=== PATIENT | female | born 1990 | race Caucasian/White ===

== ENCOUNTER 2017-12-23 22:45 | Emergency (ER) | payer SELFPAY ==
[2017-12-24] MEDS ORDERED: ONDANSETRON HCL INJ/PF 4 MG/2 ML SDV IV ONE (02:58)
[2017-12-24] MEDS ORDERED: MORPHINE SULFATE 10 MG/ML INJ IV ONE (02:58)
[2017-12-24] MEDS ORDERED: NORMAL SALINE 1000 ML 1,000 ML IV ONE (02:59)
[2017-12-24 03:13] LABS: ABSOLUTE BASOPHILS # (AUTO) 0.1 10^3/uL (0.0-0.2); ABSOLUTE EOSINOPHILS # (AUTO) 0.4 10^3/uL (0.0-0.6); ABSOLUTE LYMPHOCYTES (AUTO) 3.3 10^3/uL (0.5-4.7); ABSOLUTE MONOCYTES (AUTO) 0.8 10^3/uL (0.1-1.4); BASOPHILS % (AUTO) 0.6 % (0-2); EOSINOPHILS % (AUTO) 3.1 % (0-6); HEMATOCRIT 40.2 % (36.0-47.0); HEMOGLOBIN 13.5 g/dL (12.0-15.5); LYMPHOCYTES % (AUTO) 28.6 % (13-45); MEAN CORPUSCULAR HEMOGLOBIN 28.8 pg (27.0-33.4); MEAN CORPUSCULAR HGB CONC 33.6 g/dL (32.0-36.0); MEAN CORPUSCULAR VOLUME 86 fl (80-97); MONOCYTES % (AUTO) 7.3 % (3-13); PLATELET COUNT 378 10^3/uL (150-450); RED CELL DISTRIBUTION WIDTH 13.6 % (11.5-14.0); SEGMENTED NEUTROPHILS % (AUTO) 60.4 % (42-78); TOTAL CELLS COUNTED % (AUTO) 100 %; WHITE BLOOD COUNT 11.6 10^3/uL (4.0-10.5)
--- NOTE | 2017-12-24 03:17 | ER Document Report ---
ED General - General Mode of Arrival: Ambulatory Information source: Patient TRAVEL OUTSIDE OF THE [place] IN LAST 30 DAYS: No <BILLY CRONIN - Last Filed: 12/24/17 06:28> <ETHAN SMITH - Last Filed: 12/24/17 07:26> - General Chief Complaint: Lower Abdominal Pain Stated Complaint: ABDOMINAL PAIN Time Seen by Provider: 12/24/17 02:49 - HPI Notes: Patient is a 27-year-old female history of previous right ectopic in 2011 with surgical removal and previous right kidney stone status post 8 mm kidney stone extraction and right ovarian cyst presents with report of sudden onset of right lower quadrant abdominal pain came on about 2000 this evening after eating dinner. The patient reports no constipation or diarrhea or dysuria or vaginal discharge or fever or back injury. The patient states the pain started abruptly sharp in the right lower quadrant region and then later went to the right flank region. The patient denies any numbness or paresthesia or radiation of the pain down the leg. (BILLY CRONIN) - Related Data Allergies/Adverse Reactions: sumatriptan [From Imitrex] Allergy (Verified 12/23/17 22:51) Past Medical History - General Information source: Patient - Social History Smoking Status: Current Some Day Smoker Frequency of alcohol use: Rare Drug Abuse: None Lives with: Family Family History: Reviewed & Not Pertinent Patient has suicidal ideation: No Patient has homicidal ideation: No Renal/ Medical History: Denies: Hx Peritoneal Dialysis <BILLY CRONIN - Last Filed: 12/24/17 06:28> Review of Systems - Review of Systems -: Yes All other systems reviewed and negative <BILLY CRONIN - Last Filed: 12/24/17 06:28> Physical Exam <BILLY CRONIN - Last Filed: 12/24/17 06:28> <ETHAN SMITH - Last Filed: 12/24/17 07:26> - Vital signs Vitals: Temp Pulse Resp BP Pulse Ox 98.0 F 83 16 109/64 99 12/23/17 23:23 12/23/17 23:23 12/23/17 23:23 12/23/17 23:23 12/23/17 23:23 - Notes Notes: PHYSICAL EXAMINATION: GENERAL: Well-appearing, well-nourished and in moderate discomfort. HEAD: Atraumatic, normocephalic. EYES: Pupils equal round and reactive to light, extraocular movements intact, conjunctiva are normal. ENT: Nares patent, oropharynx clear without exudates. Moist mucous membranes. NECK: Normal range of motion, supple without lymphadenopathy LUNGS: Breath sounds clear to auscultation bilaterally and equal. No wheezes rales or rhonchi. HEART: Regular rate and rhythm without murmurs ABDOMEN: Soft abdomen. No guarding, no rebound. No masses appreciated. Tender right lower quadrant with some radiation through to the right CVA region. No erythema. Female : deferred Musculoskeletal: Normal range of motion, no pitting or edema. No cyanosis. NEUROLOGICAL: Cranial nerves grossly intact. Normal speech, normal gait. Normal sensory, motor exams PSYCH: Normal mood, normal affect. SKIN: Warm, Dry, normal turgor, no rashes or lesions noted. (BILLY CRONIN) Course - Laboratory Result Diagrams: 12/24/17 03:05 12/24/17 03:05 - Transfer of Care Care transferred to following provider: Dr. Smith <BILLY CRONIN - Last Filed: 12/24/17 06:28> - Laboratory Result Diagrams: 12/24/17 03:05 12/24/17 03:05 <ETHAN SMITH - Last Filed: 12/24/17 07:26> - Re-evaluation Re-evalutation: 12/24/17 03:16 IV normal saline bolus, Zofran, morphine was given. Urine was strained. 12/24/17 03:55 Urinalysis showed trace ketones and evidence for a UTI. Urine culture was ordered prior to the patient receiving IV Rocephin. 12/24/17 06:28 Findings fit either with ovarian pathology versus kidney stone. Less likely pyelonephritis. Less likely appendicitis or ovarian torsion. Question previous scarring from prior ectopic from 2011. Patient is not currently. CT scan is pending. Care turned over to Dr. Smith at 0600. 12/24/17 06:29 (BILLY CRONIN) 12/24/17 07:23 Patient reexamined after reviewing CT scan, she still complaining of some right lower quadrant abdominal pain, she is noted to have a 3.5 cm cyst on her right ovary, consistent with a cause of her pain, will give her a dose of Toradol, and discharged home with naproxen and given [employer]NAGER to follow-up with. Patient agreeable to plan of care and discharged home. (ETHAN SMITH) - Vital Signs Vital signs: Temp Pulse Resp BP Pulse Ox 98.0 F 83 16 109/64 99 12/23/17 23:23 12/23/17 23:23 12/23/17 23:23 12/23/17 23:23 12/23/17 23:23 - Laboratory Laboratory results interpreted by me: 12/24/17 12/24/17 03:05 03:05 WBC 11.6 H Urine Urobilinogen 4.0 H Ur Leukocyte Esterase TRACE H Discharge <BILLY CRONIN - Last Filed: 12/24/17 06:28> <ETHAN SMITH - Last Filed: 12/24/17 07:26> - Discharge Clinical Impression: Right ovarian cyst Abdominal pain Qualifiers: Abdominal location: right lower quadrant Qualified Code(s): R10.31 - Right lower quadrant pain Condition: Stable Disposition: HOME, SELF-CARE Instructions: Ovarian Cyst ([facility]) Prescriptions: Naproxen 500 mg PO Q12 PRN #30 tablet PRN Reason: general pain Referrals: [facility] [Provider Group] - Follow up in 3-5 days
[2017-12-24 03:35] LABS: ALANINE AMINOTRANSFERASE 15 U/L (9-52); ALBUMIN 4.6 g/dL (3.5-5.0); ALKALINE PHOSPHATASE 88 U/L (38-126); ANION GAP 13 (5-19); ASPARTATE AMINO TRANSFERASE 20 U/L (14-36); BILIRUBIN,DIRECT 0.2 mg/dL (0.0-0.4); BILIRUBIN,TOTAL 0.5 mg/dL (0.2-1.3); BLOOD UREA NITROGEN 16 mg/dL (7-20); CALCIUM 10.1 mg/dL (8.4-10.2); CARBON DIOXIDE 27 mmol/L (22-30); CHLORIDE 103 mmol/L (98-107); GLUCOSE 88 mg/dL (75-110); LIPASE 94.5 U/L (23-300); POTASSIUM 4.6 mmol/L (3.6-5.0); SODIUM 142.7 mmol/L (137-145); TOTAL PROTEIN 7.9 g/dL (6.3-8.2)
[2017-12-24 03:40] LABS: AMORPHOUS SEDIMENT,URINE TRACE /HPF; APPEARANCE,URINE CLOUDY; BILIRUBIN,URINE NEGATIVE (NEGATIVE); COLOR,URINE YELLOW; GLUCOSE, URINE NEGATIVE (NEGATIVE); KETONES,URINE NEGATIVE (NEGATIVE); LEUKOCYTE ESTERASE,URINE TRACE (NEGATIVE); NITRITE,URINE NEGATIVE (NEGATIVE); PROTEIN,URINE NEGATIVE (NEGATIVE); URINE SPECIFIC GRAVITY 1.021
[2017-12-24] MEDS ORDERED: CEFTRIAXONE 1 GM/D5W RTU 1 GM/50 ML RTUPB IV ONE (03:53)
--- NOTE | 2017-12-24 06:30 | RADIOLOGY REPORT (SQ) ---
CLINICAL DATA: 27-year-old female with right flank pain, history of prior ectopic, rule out ovarian cyst or stone. TECHNICAL DATA: Axial CT imaging of the abdomen and pelvis was performed. Sagittal and coronal reconstructed images were then performed. The CT study is performed according to ALARA (as low as reasonably achievable) or ALARA/IMAGE GENTLY, with automatic adjustment of mA and/or kV according to patient size. Comparison: None FINDINGS: Lung bases: The lung bases are clear. Liver:The liver is normal in size and configuration. No focal hepatic abnormalities are identified. Liver attenuation is within normal limits. Spleen:The spleen is normal is size, configuration and attenuation. Gallbladder and bile duct: The gallbladder is well distended and unremarkable. There is no biliary ductal dilatation. Pancreas: The pancreas is grossly normal in size and configuration. Adrenal Glands:The adrenal glands are normal in size and configuration. Kidneys:The kidneys are normal in size and configuration. There is no evidence of hydronephrosis. There is a punctate nonobstructing right renal calculus. There is a probable benign-appearing left renal cyst in the midpole of the left kidney. Stomach:The stomach is grossly normal. There is no definite hiatal hernia. Bowel:The bowel gas pattern is non specific and non obstructive. Appendix: The appendix is normal. Free air:There is no evidence of free air. Free fluid: There is no evidence of free fluid. Vasculature: The aorta is normal in caliber and contour. The inferior vena cava is grossly unremarkable. Lymphadenopathy: No pathologic lymphadenopathy is identified. Bladder: The bladder is well distended and smooth in contour. Reproductive: The uterus is retroverted. There is an approximately 3.1 x 1.9 x 3.5 cm cystic right adnexal mass lesion likely ovarian in nature. Bones: No acute osseous abnormalities are identified. Soft tissues: No focal soft tissue abnormalities are identified. IMPRESSION: 1. No evidence of acute intra-abdominal or intrapelvic pathology. 2. Punctate nonobstructing right renal calculus. 3. Retroverted uterus and approximately 3.5 cm cystic right adnexal mass lesion likely representing an ovarian cyst. This is almost certainly benign and no follow-up imaging is recommended.
[2017-12-24] MEDS ORDERED: KETOROLAC TROMETHAMINE INJ/PF 30 MG/1 ML SDV IV ONE (07:23)
[2017-12-24 08:12] VITALS: BP 109/57
== END 2017-12-24 08:13 | disposition home or self-care (01) ==
LOC: ER 22:45
DX: N83.201 Unspecified ovarian cyst, right side (principal); R10.31 Right lower quadrant pain; Z87.442 Personal history of urinary calculi
CPT/HCPCS: 99284; 96361; 96375; 96365; 36415; 87086; 83690; 85025; 81025; 80053; 81001; 74176; J1885; J2270; J2405; J7030; J0696

== ENCOUNTER 2017-12-31 14:11 | Emergency (ER) | payer SELFPAY ==
[2017-12-31 14:38] VITALS: BP 108/66
[2017-12-31] MEDS ORDERED: PREDNISONE 20 MG TABLET PO ONE (14:56)
--- NOTE | 2017-12-31 15:00 | ER Document Report ---
HPI - HPI Patient complains to provider of: Skin rash Onset: Other - 3 days Onset/Duration: Persistent Pain Level: 1 Context: Patient complains of pruritic skin rash to bilateral upper extremities and chin area. Patient states that she does have an allergy to pickles she is frequently exposed to them at work. Patient denies any other new foods medications or detergents. Patient denies any difficulty breathing. Associated Symptoms: Other - Skin rash. denies: Fever, Headache Exacerbated by: Denies Relieved by: Denies Similar symptoms previously: Yes Recently seen / treated by doctor: No - ROS ROS below otherwise negative: Yes Systems Reviewed and Negative: Yes All other systems reviewed and negative - CONSTITUTIONAL Constitutional: DENIES: Fever - EENT EENT: DENIES: Sore Throat - CARDIOVASCULAR Cardiovascular: DENIES: Chest pain - RESPIRATORY Respiratory: DENIES: Trouble Breathing, Coughing - GASTROINTESTINAL Gastrointestinal: DENIES: Nausea, Patient vomiting - DERM Skin Color: Normal Skin Problems: Rash Past Medical History - General Information source: Patient - Social History Smoking Status: Never Smoker Frequency of alcohol use: None Drug Abuse: None Occupation: Foodservice Family History: Reviewed & Not Pertinent - Medical History Medical History: Negative Renal/ Medical History: Denies: Hx Peritoneal Dialysis Past Surgical History: Reports: Hx Gynecologic Surgery, Hx Urinary Tract Surgery Vertical Provider Document - CONSTITUTIONAL Agree With Documented VS: Yes Exam Limitations: No Limitations General Appearance: WD/WN, No Apparent Distress - INFECTION CONTROL TRAVEL OUTSIDE OF THE [place] IN LAST 30 DAYS: No - HEENT HEENT: Atraumatic, Normal ENT Exam, Normocephalic - NECK Neck: Normal Inspection, Supple. negative: Lymphadenopathy-Left, Lymphadenopathy-Right - RESPIRATORY Respiratory: Breath Sounds Normal, No Respiratory Distress - CARDIOVASCULAR Cardiovascular: Regular Rate, Regular Rhythm, No Murmur - BACK Back: Normal Inspection - MUSCULOSKELETAL/EXTREMETIES Musculoskeletal/Extremeties: MAEW, FROM, Non-Tender - NEURO Level of Consciousness: Awake, Alert, Appropriate Motor/Sensory: No Motor Deficit - DERM Integumentary: Warm, Dry, Rash - Pruritic erythematous maculopapular rash to bilateral forearms and under her chin. Course - Re-evaluation Re-evalutation: 12/31/17 14:57 Patient with pruritic skin rash that she suspects may be related to exposure to pickles at work. Patient without any central airway compromise. No concern for anaphylaxis. Good return precautions given. - Vital Signs Vital signs: Temp Pulse Resp BP Pulse Ox 97.9 F 75 12 108/66 99 12/31/17 14:37 12/31/17 14:37 12/31/17 14:37 12/31/17 14:37 12/31/17 14:37 Discharge - Discharge Clinical Impression: Skin rash Condition: Stable Disposition: HOME, SELF-CARE Instructions: Contact Dermatitis ([facility]), Steroid Medication Additional Instructions: Return immediately for any new or worsening symptoms Followup with your primary care provider, call tomorrow to make a followup appointment Try to keep arms covered when at work to minimize exposure to known allergens. Prescriptions: Hydroxyzine HCl [Atarax 25 mg Tablet] 1 - 2 tab PO QID #15 tablet Prednisone [Deltasone 10 mg Tablet] 10 mg PO ASDIR PRN #21 tablet PRN Reason: Forms: Return to Work Referrals: [facility] [Provider Group] - Follow up as needed
== END 2017-12-31 15:38 | disposition home or self-care (01) ==
LOC: ER 14:11
DX: R21 Rash and other nonspecific skin eruption (principal); L29.8 Other pruritus
CPT/HCPCS: 99282; J7512